=== PATIENT | female | born 2005 | race Hispanic/Latino ===

== ENCOUNTER 2024-10-12 23:31 | Emergency (ER) | payer SELFPAY ==
[2024-10-13] MEDS ORDERED: Ibuprofen 800 MG TAB ONE (03:18)
== END 2024-10-13 03:36 | disposition home or self-care (01) ==
LOC: ERS 23:31
DX: S93.402A Sprain of unspecified ligament of left ankle, initial encounter (principal); X50.1XXA Overexertion from prolonged static or awkward postures, initial encounter; Y93.39 Activity, other involving climbing, rappelling and jumping off
CPT/HCPCS: 99283